=== PATIENT | male | born 1985 | race Caucasian/White ===

== ENCOUNTER 2025-01-28 08:06 | Inpatient (IN) | payer MEDICARE, MEDICAID ==
[2025-01-27 22:00] VITALS: BP 147/91; PULSE 84; RESP 16; TEMP 98.1; O2SAT 97
[~2025-01-28] VITALS: Ht 175.3 cm; Wt 84.0 kg
--- NOTE | 2025-01-28 08:22 | Physician Documentation ---
History of Present Illness General Chief Complaint: Abdominal Pain Stated Complaint: ABD PAIN Time Seen by MD: 08:21 OK to notify your PCP?: No Source: patient, RN notes reviewed Mode of Arrival: POV Exam Limitations: no limitations History of Present Illness Initial Comments 39 year old male, with no significant past medical history, presents complaining of periumbilical abdominal pain for the last month. Patient also describes some constipation and abdominal bloating over this time; he has not had a bowel movement in 3 days. Additionally he has had some nausea and vomiting after eating for the last 2 days. He visited an urgent care clinic, who initially told him pain may be related to his gallbladder so recommended a BRAT diet, which did not improve symptoms. He has been drinking plenty of fluids. He denies any fevers, chills, chest pain, bloody stool, urinary symptoms. He does not smoke tobacco or marijuana. Medication Reconciliation Allergies: Coded Allergies: No Known Allergies (Unverified , 01/28/25) Miscellaneous Medications Home Med List (No Home Medications), (Reported) Past Medical History Past Medical History: No Pertinent History Past Surgical History: no surgical history Alcohol Use: None Drug Use: none Lives In: Home Review of Systems All Other Systems at this time: Reviewed and Negative ROS As stated above in the HPI, otherwise all systems are reviewed and negative. Physical Exam Physical Exam Vital Signs: RN Vital Signs have been reviewed: Yes, Temperature: 98.4, Heart Rate: 116, Respiratory Rate: 16, BP: 146/98, Pulse Oximetry: 100, Weight: 81.000 Oxygen Flow Rate: 0 Pulse Oximetry Reflects: adequate oxygenation Physical Exam VITALS: Reviewed and as above. GENERAL: Alert, no apparent distress. HEENT: Normocephalic, atraumatic, PERRL, EOMI, dry mucosa RESPIRATORY: Lungs clear, normal breath sounds, no respiratory distress. CHEST: No accessory muscle use, no retractions CV: Regular rate, rhythm, no edema, no murmur, No: JVD GI: Mild epigastric tenderness. Soft, bowels sounds present, no rebound, guarding, or rigidity MUSCULOSKELETAL No deformities, no edema SKIN: Warm and dry, no rash NEURO: Oriented x4, No motor or sensory deficit PSYCH: Normal mood and affect, no agitation Progress Progress Note 0953: Hospitalist paged. 1001: Case discussed with Dr. Wong, hospitalist, who agrees to evaluate the patient for admission. 1008: Case discussed with Dr. Sharma, surgeon, who will consult. Results/Orders Reviewed/noted all lab results: Yes Results/Orders Orders - OHLFSEMILIANA MD Urinalysis, Cult If Indicated (01/28/25 08:14) Ct Abdomen Pelvis (01/28/25 ) Nasal Gastric Tube (01/28/25 ) Page Hospitalist (01/28/25 09:51) Fill Out Med Reconciliation (01/28/25 09:51) Completed Orders - EMILIANA CASTRO MD Cbc/Diff (01/28/25 08:14) BMP (01/28/25 08:14) Lipase (01/28/25 08:14) CMP (01/28/25 08:14) Normal Saline 1000ml (Sodium Chloride 10 (01/28/25 08:50) Ondansetron Inj. (Zofran 4mg/2ml Vial) (01/28/25 08:50) Ct Abdomen Pelvis (01/28/25 ) Midazolam 1 Mg/Ml 2ml Inj. (Versed 1 Mg/ (01/28/25 10:05) Medications Received in ER Medications (Trade) Dose Ordered Sig/Guillermo Route PRN Reason Start Time Stop Time Status Last Admin Dose Admin (VERSED 1 MG/ML 2 ML inj.) 2 mg ONCE ONCE IV 01/28/25 10:05 01/28/25 10:06 DC 01/28/25 10:37 2 MG Sodium Chloride 1,000 ml @ 100 mls/hr Q10H IV 01/28/25 10:05 01/28/25 11:20 100 MLS/HR Vital Signs 01/28/25 01/28/25 01/28/25 01/28/25 08:10 08:22 08:55 09:30 Temp 98.4 97.8 Pulse 116 109 92 Resp 16 15 18 16 B/P (MAP) 146/98 138/95 (109) 144/93 (110) Pulse Ox 100 100 100 O2 Flow Rate 0 0 0 Laboratory Tests Test 01/28/25 08:32 White Blood Count 14.2 H Red Blood Count 5.39 Hemoglobin 17.2 Hematocrit 49.0 Mean Corpuscular Volume 91.0 Mean Corpuscular Hemoglobin 32.0 H Mean Corpuscular Hemoglobin Concent 35.1 Red Cell Distribution Width 13.4 Platelet Count 280 Mean Platelet Volume 11.0 H Neutrophils (%) (Auto) 73.2 Lymphocytes (%) (Auto) 15.8 L Monocytes (%) (Auto) 9.4 Eosinophils (%) (Auto) 0.9 Basophils (%) (Auto) 0.7 Neutrophils # (Auto) 10.4 H Lymphocytes # (Auto) 2.2 Monocytes # (Auto) 1.3 H Eosinophils # (Auto) 0.1 Basophils # (Auto) 0.1 CBC Comment Sodium Level 136 Potassium Level 3.6 Chloride Level 92 L Carbon Dioxide Level 33.5 H Anion Gap 11 Blood Urea Nitrogen 33 H Creatinine 1.50 H Estimated GFR/1.73 m2 52 BUN/Creatinine Ratio 22.0 H Glucose Level 100 Calcium Level 9.2 Total Bilirubin 1.3 H Aspartate Amino Transf (AST/SGOT) 47 H Alanine Aminotransferase (ALT/SGPT) 75 Alkaline Phosphatase 135 H Total Protein 7.8 Albumin 4.5 Globulin 3.3 Albumin/Globulin Ratio 1.4 Lipase 73 Chemistry Comments EKG/XRAY/CT/US/VASC/MRI CT : Interpreted By: radiologist CT: abdomen/pelvis With Contrast?: No Impression Exam: CT CT ABDOMEN PELVIS History: abd pain Comparison Study: None available at time of dictation. TECHNIQUE: A digital medical physics teacher image was obtained. During the uneventful, intravenous administration of contrast material, multislice data acquisition was obtained through the abdomen and pelvis. The data set was subsequently reconstructed into axial images. Images were reviewed on a work station using a combination of axial and multiplanar using a variety of window levels and settings. Radiation Dose Information: CT Dose: CTDI volume is 25 mGy. Dose-length product is 250 mGy*cm FINDINGS: Lung Bases: No acute or significant lung base finding. Normal heart size. No pleural or pericardial effusion. Liver: The liver is normal in size. No focal lesions. Normal hepatic vascular enhancement. Gallbladder and Biliary Tree: Unremarkable Spleen: Unremarkable Pancreas: The pancreas is normal in appearance without focal lesions or abnormal enhancement. Adrenal Glands: Unremarkable Kidneys: Kidneys demonstrate normal symmetric enhancement without focal lesions, calculi or hydronephrosis. Bladder: Unremarkable Bowel: The stomach is grossly normal in appearance. Diffusely dilated loops of small bowel without definite transition point noted. Findings represent a small-bowel obstruction. The appendix is not visualized; however, no secondary findings of acute appendicitis identified. Ascites: Absent Lymphadenopathy: No mesenteric, retroperitoneal or periportal lymphadenopathy. Abdominal Wall and Mesentery: Unremarkable. Vasculature: The visualized abdominal aorta is normal in size and caliber. Abdominal and pelvic vessels demonstrate normal enhancement. Pelvic Organs: Unremarkable Musculoskeletal: No aggressive focal bony lesions, acute fractures or dislocation. Soft tissues: Unremarkable. IMPRESSION: Diffusely dilated loops of small bowel without definite transition point noted. Findings represent a small-bowel obstruction. All CT scans at this medical facility are performed using dose modulation techniques as appropriate to a performed exam including the following: Automated exposure control was utilized; adjustment of the MA and/or KV according to patient size; and use of iterative reconstruction technique. Reviewed by me Medical Decision Making Additional info obtained from: old records (no prior visits) Findings The patient is a 39-year-old male with the abdominal pain nausea vomiting and abdominal distention, the patient has never had any bowel surgeries, the patient was found to have a small-bowel obstruction on CT scan I independently interpreted the CT scan does show no solid organ abnormalities but the patient does have dilated small bowel loops and no free fluid was appreciated or no evidence of bowel perforation was appreciated, I interpreted the CT as showing a small bowel obstruction the radiologist's interpretation was also reviewed. The patient was discussed with surgery as well as with the hospitalist patient had an NG-tube placed with confirmation of the NG tube placement on chest x-ray I reviewed the chest x-ray and showed NG-tube placement and good position that showed a normal mediastinum normal cardiac silhouette and normal bony structures. I have also reviewed the radiologist's interpretation all previous labs and imaging were reviewed case was discussed with the hospitalist patient will be admitted to the hospital Differential Diagnosis All labs were noted and reviewed. Prior visits/hospitalizations were reviewed; no prior visits. Pulse ox was reviewed and interpreted as normal. Departure Time of Disposition: 09:53 Disposition: 09 ADMITTED INPATIENT Admitted to Inpatient Unit: yes, to hospitalist Impression: Primary Impression: SBO (small bowel obstruction) Condition: Fair Referrals: NO PRIMARY CARE PROVIDER (PCP) Signature Scribe Signature: Scribed for Ohlfs,Emiliana Moscoso MD by Jeffery Barron . 01/28/25 09:04 Attestation: The note accurately reflects work and decisions made by me.Emiliana Castro MD 01/28/25 17:18 EMILIANA CASTRO MD Jan 28, 2025 08:22 JEFFERY ESTRELLA Jan 28, 2025 09:09
[2025-01-28] MEDS: ondansetron/PF 4mg/2ml inj IV ONE (08:50)
[2025-01-28 08:52] LABS: BASOPHILS # (AUTO) 0.1 X10'3 (0-0.2); BASOPHILS % (AUTO) 0.7 % (0-1); EOSINOPHILS # (AUTO) 0.1 X10'3 (0-0.9); EOSINOPHILS % (AUTO) 0.9 % (0-6); HEMOGLOBIN 17.2 g/dl (14.0-17.9); LYMPHOCYTES # (AUTO) 2.2 X10'3 (1.1-4.8); LYMPHOCYTES % (AUTO) 15.8 % (21-51); MEAN CORPUSCULAR HGB CONC 35.1 g/dL (33.0-36.5); MONOCYTES # (AUTO) 1.3 X10'3 (0-0.9); MONOCYTES % (AUTO) 9.4 % (2-12); NEUTROPHILS # (AUTO) 10.4 X10'3 (1.8-7.7); NEUTROPHILS % (AUTO) 73.2 % (42-75); PLATELET COUNT 280 X10'3 (140-440); RED BLOOD COUNT 5.39 X10'6 (4.70-6.10); RED CELL DISTRIBUTION WIDTH 13.4 % (11.5-14.5); WHITE BLOOD COUNT 14.2 X10'3 (4.5-11.0)
[2025-01-28 08:55] LABS: ALANINE AMINOTRANSFERASE 75 U/L (12-78); ALBUMIN 4.5 G/DL (3.4-5.0); ALBUMIN/GLOBULIN RATIO 1.4 (1.1-1.5); ALKALINE PHOSPHATASE 135 IU/L (46-116); ANION GAP 11 (8-16); ASPARTATE AMINO TRANSFERASE 47 U/L (10-37); BILIRUBIN,TOTAL 1.3 MG/DL (0.1-1.0); BLOOD UREA NITROGEN 33 MG/DL (7-18); CALCIUM 9.2 MG/DL (8.5-10.1); CHLORIDE 92 MMOL/L (99-107); GLUCOSE 100 MG/DL (70-104); LIPASE 73 U/L (16-77); POTASSIUM 3.6 MMOL/L (3.5-5.1); SODIUM 136 MMOL/L (135-145); TOTAL CARBON DIOXIDE 33.5 MMOL/L (24-32); TOTAL PROTEIN 7.8 G/DL (6.4-8.2); eCRCL 66 ML/MIN; eGFR 52 ML/MIN
[2025-01-28] MEDS: normal saline 1000ML IV soln IVB ONE (09:34)
--- NOTE | 2025-01-28 09:45 | RADIOLOGY REPORT ---
Exam: CT CT ABDOMEN PELVIS History: abd pain Comparison Study: None available at time of dictation. TECHNIQUE: A digital rn hedis image was obtained. During the uneventful, intravenous administration of c ontrast material, multislice data acquisition was obtained through the abdomen and pelvis. The data s et was subsequently reconstructed into axial images. Images were reviewed on a work station using a c ombination of axial and multiplanar using a variety of window levels and settings. Radiation Dose Information: CT Dose: CTDI volume is 25 mGy. Dose-length product is 250 mGy*cm FINDINGS: Lung Bases: No acute or significant lung base finding. Normal heart size. No pleural or pericardial effusion. Liver: The liver is normal in size. No focal lesions. Normal hepatic vascular enhancement. Gallbladder and Biliary Tree: Unremarkable Spleen: Unremarkable Pancreas: The pancreas is normal in appearance without focal lesions or abnormal enhancement. Adrenal Glands: Unremarkable Kidneys: Kidneys demonstrate normal symmetric enhancement without focal lesions, calculi or hydroneph rosis. Bladder: Unremarkable Bowel: The stomach is grossly normal in appearance. Diffusely dilated loops of small bowel without de finite transition point noted. Findings represent a small-bowel obstruction. The appendix is not vi sualized; however, no secondary findings of acute appendicitis identified. Ascites: Absent Lymphadenopathy: No mesenteric, retroperitoneal or periportal lymphadenopathy. Abdominal Wall and Mesentery: Unremarkable. Vasculature: The visualized abdominal aorta is normal in size and caliber. Abdominal and pelvic vess els demonstrate normal enhancement. Pelvic Organs: Unremarkable Musculoskeletal: No aggressive focal bony lesions, acute fractures or dislocation. Soft tissues: Unremarkable. IMPRESSION: Diffusely dilated loops of small bowel without definite transition point noted. Findings represent a small-bowel obstruction. All CT scans at this medical facility are performed using dose modulation techniques as appropriate t o a performed exam including the following: Automated exposure control was utilized; adjustment of th e MA and/or KV according to patient size; and use of iterative reconstruction technique.
[2025-01-28] MEDS ORDERED: magnesium hydroxide 30ml (MOM) UD suspension PO PRN (10:05)
[2025-01-28] MEDS ORDERED: potassium Cl 40MEQ/1/2NS 520ml 520 ML IV PRN (10:05)
[2025-01-28] MEDS ORDERED: acetaminophen 325mg tablet PO PRN (10:05)
[2025-01-28] MEDS ORDERED: potassium Cl 20 mEq SR tablet PO PRN (10:05)
[2025-01-28] MEDS ORDERED: ondansetron/PF 4mg/2ml inj IV PRN (10:05)
[2025-01-28] MEDS ORDERED: mag hydrox/Alum hydrox/simeth 30ml oral suspension PO PRN (10:05)
[2025-01-28] MEDS ORDERED: magnesium sulf-water 4G/100mL 100 ML IV PRN (10:05)
[2025-01-28] MEDS ORDERED: magnesium sulf-water 2g/50mL 50 ML IV PRN (10:05)
[2025-01-28] MEDS: midazolam 1 mg/ML 2ml injection IV ONE (10:37)
--- NOTE | 2025-01-28 11:01 | HISTORY AND PHYSICAL ---
History & Physical Providers to CC ~ History of Present Illness Reason for Admit\Complaint: Small-bowel obstruction\abdominal pain with emesis History of Present Illness This is a 39-year-old male who has a three day history of periumbilical abdominal pain as well as nausea and intermittent emesis last episode of vomiting was last evening. The patient had a normal bowel movement three days ago was seen in urgent Care Clinic and recommended a brat diet patient was symptoms have not improve. Patient denies any fever chills. The patient [place] [address] and an acute kidney injury with a estimated GFR of 52 and a creatinine 1.50. A CT scan of the abdomen and pelvis was obtained which demonstrates multiple dilated loops of small bowel consistent with a small-bowel obstruction without a definitive transition point. Dr. Rivera ED physician is going to contact on-call surgeon Dr. Sharma- NG tube to low wall intermittent suction is ordered. Allergies: Coded Allergies: No Known Allergies (Unverified , 01/28/25) Past Medical History Past Medical History None no chronic health conditions Past Surgical History Surgical History Comment No prior surgeries Family History Family History: FH: colon cancer Paternal great grandmother Past Social History Social History Comment Patient denes history of smoking/ drinking alcohol nor any illicit drug use Full Code Status ROS ROS Except for positives in the HPI the rest of the 14 point review systems is negative Exam Vitals: Vital Signs Date Time Temp Pulse Resp B/P (MAP) Pulse Ox O2 Delivery O2 Flow Rate FiO2 01/28/25 08:55 97.8 109 18 138/95 (109) 100 0 General: Gen. No acute distress alert and oriented 4 Lungs clear to ascultation bilaterally, no wheezes rales or rhonchi appreciated Heart normal sinus rhythm no murmurs rubs or clicks noted Abdomen soft however moderately distended and bowel sounds are slightly hypoactive Lower extremities no clubbing cyanosis, nor edema appreciated bilaterally Diagnostic Data Last Recorded Lab Results: 01/28/25 0832 01/28/25 0832 Advance Care Planning Advanced Care plannin - 30 Minutes Problems: (1) SBO (small bowel obstruction) Status: Acute Additional Plan # small-bowel obstruction- NPO- NG tube to low wall intermittent suction- Dr. Sharma surgeon to be consulted # renal insufficiency likely secondary to MARLENE daily CMPs are ordered to monitor IV fluid resuscitation is ordered # elevated bilirubin and AST- monitor daily CMP - the gallbladder and biliary tree is unremarkable on CT scan. # leukocytosis- neutrophil% is normal- afebrile likely secondary to leukemoid reaction monitor for any signs of an acute infectious process # DVT prophylaxis SCDs I spent a total of 17 minutes on reviewing various resuscitative measures/ ACP with the patient at the time of admission. The patient has decided on a full code status Date of Service: Jan 28, 2025 Billing Provider: GUIDO DALAL DO Common Visit Codes: 29304-HDZZUDI INP/OBS CARE (HIGH) Secondary Visit Codes: 37885-[id number] CARE PLAN 30 MINUTES GUIDO DALAL DO Jan 28, 2025 11:01
[2025-01-28] MEDS: normal saline 1000ml 1,000 ML IV SCH (11:20)
[2025-01-28] MEDS ORDERED: NO HOME MEDS (11:38)
--- NOTE | 2025-01-28 11:49 | RADIOLOGY REPORT ---
DI CHEST,SINGLE VIEW, HISTORY: verify NGT placement COMPARISON: None None TECHNICAL DATA: 1 view of the chest was obtained. FINDINGS: Lines and tubes: NG projects over the stomach. Cardiomediastinal silhouette: normal Pulmonary vasculature: normal Lung expansion: normal Lung airspace: normal Lung interstitium: normal Pleura: normal Pneumothorax: no Bones: Unremarkable Other: no IMPRESSION: NG projects over the stomach.
[2025-01-28 12:30] VITALS: BP 148/94; PULSE 91; RESP 16; TEMP 98.9; O2SAT 98
[2025-01-28 18:00] VITALS: BP 142/90; PULSE 94; RESP 16; TEMP 98.9; O2SAT 99
[2025-01-28] MEDS ORDERED: dextrose 50%-water 50ml dispensing syringe IV PRN (18:35)
[2025-01-28] MEDS ORDERED: glucagon, human recombinant 1mg kit SUBCUT PRN (18:35)
[2025-01-28] MEDS ORDERED: DEXTROSE 15 GM of carb/4 tabs (each vial/BOTTLE has 4 tablets) PO PRN ×2 (18:35)
[2025-01-28] MEDS ORDERED: diatrozoate meglu/diatrozoate sod (37% iodine) 120ML oral solution PO ONE (18:40)
--- NOTE | 2025-01-28 18:43 | PROGRESS NOTE ---
Progress Note Dictate Providers to CC CC: BENSON ROMERO MD ~ Progress Note: Patient is a 39-year-old gentleman He has no history of small-bowel obstruction He has a two week history of worsening abdominal pain and bloating Had some nausea and vomiting Abdominal pain was somewhat worse today and he presented to the emergency room where he was found to have evidence of a small-bowel obstruction Radiologist did not see a transition point, however, ICA fairly cleared distal and proximal transition point with a slight whorl sign at the distal transition point This raises some concern for possible small-bowel volvulus, however, patient is now reporting no pain, passing flatus. Presentation and imaging is somewhat confusing Given abdomen is only softly distended, pain-free, and he is passing flatus I would like to repeat a CT scan with oral contrast Gastric view ordered x1 via nasogastric tube CT scan ordered for 7:00 a.m. (12 hour dwell time) Antibiotic Ordered?: No Objective Vitals Vital Signs Date Time Temp Pulse Resp B/P (MAP) Pulse Ox O2 Delivery O2 Flow Rate FiO2 01/28/25 14:46 Room Air 01/28/25 12:30 98.9 91 16 148/94 (112) 98 01/28/25 11:17 0 Lab Results: 01/28/25 0832 01/28/25 0832 BENSON ROMERO MD Jan 28, 2025 18:43
[2025-01-28] MEDS: K and/or MAG REPLACEMENT MC SCH (19:04)
[2025-01-28] MEDS: docusate sod 100mg capsule PO SCH (19:05)
[2025-01-28] MEDS: diatr meglu/diatrizoate 30ml oral sol.-(3 dose) bottle PO ONE (19:20)
[2025-01-28 20:00] VITALS: RESP 16; O2SAT 99
[2025-01-28] MEDS ORDERED: enoxaparin 40mg/0.4ml syringe SQ SCH (20:00)
[2025-01-28] MEDS: dextrose 50%-water 50ml dispensing syringe IV PRN (20:56)
[2025-01-29] VITALS (19 sets, daily range): BP systolic 109–164; BP diastolic 58–103; PULSE 78–104; RESP 14–24; TEMP 97.9–98.9; O2SAT 93–99
[2025-01-29 06:15] LABS: BASOPHILS # (AUTO) 0.1 X10'3 (0-0.2); BASOPHILS % (AUTO) 0.5 % (0-1); EOSINOPHILS # (AUTO) 0.2 X10'3 (0-0.9); EOSINOPHILS % (AUTO) 2.2 % (0-6); HEMATOCRIT 42.2 % (42.0-52.0); LYMPHOCYTES # (AUTO) 1.5 X10'3 (1.1-4.8); LYMPHOCYTES % (AUTO) 16.6 % (21-51); MEAN CORPUSCULAR HEMOGLOBIN 32.4 PG (27.0-31.0); MEAN CORPUSCULAR HGB CONC 35.5 g/dL (33.0-36.5); MEAN CORPUSCULAR VOLUME 91.1 FL (78-98); MEAN PLATELET VOLUME 10.4 FL (7.4-10.4); MONOCYTES % (AUTO) 10.5 % (2-12); NEUTROPHILS # (AUTO) 6.5 X10'3 (1.8-7.7); NEUTROPHILS % (AUTO) 70.2 % (42-75); PLATELET COUNT 206 X10'3 (140-440); RED BLOOD COUNT 4.63 X10'6 (4.70-6.10); RED CELL DISTRIBUTION WIDTH 13.4 % (11.5-14.5); WHITE BLOOD COUNT 9.3 X10'3 (4.5-11.0)
[2025-01-29 06:24] LABS: ALANINE AMINOTRANSFERASE 64 U/L (12-78); ALBUMIN 3.6 G/DL (3.4-5.0); ALBUMIN/GLOBULIN RATIO 1.3 (1.1-1.5); ALKALINE PHOSPHATASE 112 IU/L (46-116); ANION GAP 8 (8-16); ASPARTATE AMINO TRANSFERASE 32 U/L (10-37); BILIRUBIN,TOTAL 0.8 MG/DL (0.1-1.0); BLOOD UREA NITROGEN 22 MG/DL (7-18); BUN/CREATININE RATIO 20.4 (10.0-20.0); CALCIUM 8.5 MG/DL (8.5-10.1); CHLORIDE 100 MMOL/L (99-107); CREATININE 1.08 MG/DL (0.60-1.10); GLUCOSE 81 MG/DL (70-104); MAGNESIUM 2.3 MG/DL (1.5-2.4); POTASSIUM 3.2 MMOL/L (3.5-5.1); SODIUM 140 MMOL/L (135-145); TOTAL CARBON DIOXIDE 31.8 MMOL/L (24-32); TOTAL PROTEIN 6.3 G/DL (6.4-8.2); eCRCL 92 ML/MIN; eGFR 76 ML/MIN
[2025-01-29] MEDS: potassium Cl 20 mEq SR tablet PO PRN (07:17)
[2025-01-29 08:03] LABS: BILIRUBIN,URINE MODERATE (Neg); CLARITY,URINE CLEAR (Clear); GLUCOSE, URINE NEGATIVE (Neg); KETONES,URINE >=80 mg/dl (Neg); LEUKOCYTE ESTERASE ,URINE NEGATIVE (Neg); NITRITES, URINE NEGATIVE (Neg); OCCULT BLOOD,URINE NEGATIVE (Neg); PH,URINE 6.5 (4.8-8.0); PROTEIN,URINE 30 mg/dl (Neg); UROBILINOGEN,URINE 0.2 E.U/dL (0.2-1.0)
[2025-01-29 08:09] LABS: COLOR,URINE DARK YELLOW (Yellow); UA COLLECTION TYPE NON-SPECIFIED
[2025-01-29 08:18] LABS: BACTERIA,URINE FEW /HPF (Neg); FINE GRANULAR CAST 0-3 /LPF (NEGATIVE); MUCUS STRANDS FEW /LPF (Neg); RBC,URINE NONE SEEN /HPF (0-2); SQUAMOUS EPITHELIAL CELL,UR FEW /LPF (FEW); WBC,URINE 0-4 /HPF (0-4)
--- NOTE | 2025-01-29 09:36 | RADIOLOGY REPORT ---
EXAM: CT Abdomen and Pelvis Without Intravenous Contrast CLINICAL INDICATION: Small-bowel obstruction TECHNIQUE: Axial computed tomography images of the abdomen and pelvis without intravenous contrast. This CT exam was performed using one or more of the following dose reduction techniques: automated exposure control, adjustment of the mA and/or kV according to patient size, and/or use of iterative r econstruction technique. CONTRAST: COMPARISON: CT CT ABDOMEN PELVIS on DOS: 01/28/25 FINDINGS: LUNG BASES: Unremarkable. No mass. No consolidation. ABDOMEN: LIVER: Hepatomegaly with fatty infiltration. GALLBLADDER AND BILE DUCTS: Unremarkable. No calcified stones. No ductal dilation. PANCREAS: Unremarkable. No ductal dilation. SPLEEN: Unremarkable. No splenomegaly. ADRENALS: Unremarkable. No mass. KIDNEYS AND URETERS: Unremarkable. No obstructing stones. No hydronephrosis. STOMACH AND BOWEL: Unremarkable. No obstruction. No mucosal thickening. PELVIS: APPENDIX: No findings to suggest acute appendicitis. BLADDER: Unremarkable. No stones. REPRODUCTIVE: Unremarkable as visualized. ABDOMEN and PELVIS: INTRAPERITONEAL SPACE: Distended small bowel with differential air-fluid levels measuring up to 6.0 cm with possible transition point in the right lower abdominal quadrant. No pneumoperitoneum. BONES/JOINTS: No acute fracture. No dislocation. SOFT TISSUES: Left inguinal hernia. VASCULATURE: Unremarkable. No abdominal aortic aneurysm. LYMPH NODES: Unremarkable. No enlarged lymph nodes. OTHER FINDINGS: . . IMPRESSION: 1. Distended small bowel with differential air-fluid levels measuring up to 6.0 cm with possible tra nsition point in the right lower abdominal quadrant. No pneumoperitoneum. 2. Hepatomegaly with fatty infiltration. 3. Left inguinal hernia.
--- NOTE | 2025-01-29 10:52 | CONSULTATION REPORT ---
History of Present Illness Providers to CC CC: BENSON ROMERO MD ~ Reason for Admit\Admit Dx: Small-bowel obstruction\abdominal pain with emesis History of Present Illness Consultation for small-bowel obstruction Otherwise healthy 39-year-old gentleman with a several week history of worsening abdominal discomfort that became more painful over the last several days. Food fear and intermittent episodes of nausea and emesis. Workup in the emergency room included CT scan that was concerning for small bowel obstruction. I reviewed this CT scan yesterday and was concern for possible volvulus of the mid small intestine, however, patient reported no pain at that time, leukocytosis had improved/resolved, and he stated he was passing some flatus. Repeat imaging was ordered for this morning with overnight oral contrast prep. Patient had a liquid bowel movement this morning, but remained somewhat distended. I reviewed the CT scan and it showed almost exactly the same segment of small intestine, significantly dilated, with a distal transition point. I am also concerned for a possible proximal transition point with no significant distention of the stomach or proximal small bowel. There is a segment of jejunum that is significantly dilated not too far downstream from the ligament of Treitz with a clear transition point in the right lower quadrant. There was some subtle suggestion of whirling of the the mesentery near this area. There was contrast downstream within the colon and rectum making this most likely a partial transition point. Patient has absolutely no surgical history and there are no associated hernias along the abdominal wall associated with either of these two possible transition points. Allergies: Coded Allergies: No Known Allergies (Unverified , 01/28/25) Home Medications Home Medications Active Reported No Home Medications (Home Med List) Each Past Medical History Medical History Comment None reported Past Surgical History Surgical History Comment No past surgical history Past Family History Family History Comment Not applicable Family History: FH: colon cancer Paternal great grandmother FATHER, Onset:Unknown FH: pancreatic cancer FATHER FHx: Parkinson's disease MOTHER Past Social History Social History Comment Negative x3 Health Maintenance Health Maintenance Not applicable Physical Exam Last Vital Signs Recorded: RN Vital Signs have been reviewed: Yes, Temperature: 98.5, Source: Temporal, Heart Rate: 89, Respiratory Rate: 18, BP: 143/91, Pulse Oximetry: 95, Weight: 84.000 General Appearance 39-year-old male in no acute distress EENT: PERRL/EOMI; No: scleral icterus (R), scleral icterus (L) Neck: normal inspection, supple Respiratory: lungs clear Cardiovascular: regular rate, rhythm Gastrointestinal Abdomen is softly distended There was a small reducible umbilical hernia with no overlying skin changes Mildly tender to palpation without rebound tenderness No palpable masses or other hernias Rectal: deferred Extremities: normal range of motion, no edema Neurologic: oriented x4 Psychiatric: normal mood/affect; No: anxiety Skin: normal color Lymphatic: no adenopathy Review of Systems ROS ROS Comments: Reviewed and negative with the exception of those found in the history of present illness Results Diagram Lab Result Diagram: 01/29/2545001/29/25 045 Assessment/Plan Problems/Diagnosis: (1) SBO (small bowel obstruction) Assessment & Plan: No improvement on CT scan despite partial status Concern for possible small-bowel volvulus versus partially obstructing lesion The risks, benefits, and alternatives to a robotic assisted, diagnostic laparoscopy, possible laparotomy, possible bowel resection were discussed with the patient and his mother. Risks include, but are not limited to, bleeding, infection, injury to intra-abdominal structures, leakage from the intestine and the need for additional surgery. Patient verbalized understanding and wishes to proceed with surgery. We will do so today as soon as possible. BENSON ROMERO MD Jan 29, 2025 10:52
[2025-01-29 11:16] LABS: INR 1.1 INR; PROTHROMBIN TIME 10.9 SECONDS (9.0-12.0)
[2025-01-29] MEDS: LORazepam 1 MG tablet PO ONE (11:25)
[2025-01-29] MEDS ORDERED: morphine 2 MG/ML inj. syringe IV PRN (13:20)
[2025-01-29] MEDS ORDERED: labetalol 20mg/4ml (5mg/ml) syringe IV PRN (13:20)
[2025-01-29] MEDS ORDERED: proCHLORperazine 10 MG/2 ml inj IV PRN (13:20)
[2025-01-29] MEDS ORDERED: meperidine/PF 25mg/ml syringe IV PRN ×3 (13:20)
[2025-01-29] MEDS ORDERED: morphine 4 MG/ML inj SYRINge IV PRN (13:20)
[2025-01-29] MEDS ORDERED: ondansetron/PF 4mg/2ml inj IV PRN (13:20)
[2025-01-29] MEDS ORDERED: enalaprilat 1.25mg/ml 2ml vial IV PRN (13:20)
[2025-01-29] MEDS: ringers solution, lacted 1,000 ML IV SCH (13:47)
[2025-01-29] MEDS ORDERED: LIDOcaine 1% 30ml preserv. free vial ONE ×2 (15:36→19:08)
[2025-01-29] MEDS ORDERED: BUPIVAcaine 2.5mg/ml inj 50ml vial (contains preservative) ONE ×2 (15:36→19:08)
[2025-01-29] MEDS ORDERED: sevoflurane 250ml liquid IH ONE (16:18)
[2025-01-29] MEDS ORDERED: midazolam 1 mg/ML 2ml injection ONE (16:25)
[2025-01-29] MEDS ORDERED: fentaNYL /PF 50mcg/ml 5ml ampule ONE (16:25)
[2025-01-29] MEDS ORDERED: ceFAZolin 1000mg inj ONE ×2 (16:52)
[2025-01-29] MEDS ORDERED: rocuronium 10mg/ml inj IV ONE (16:52)
[2025-01-29] MEDS ORDERED: propofol inj 20 ML IV ONE (16:53)
[2025-01-29] MEDS: BUPIVAcaine/PF 2.5 mg/ml (0.25%) 30ml vial IJ ONE (17:18)
[2025-01-29] MEDS ORDERED: morphine 10mg/ml inj. ONE (17:50)
--- NOTE | 2025-01-29 19:18 | OPERATIVE REPORT ---
Operative Report Providers to CC CC: HAN ROMERO MD ~ Date of Procedure: Jan 29, 2025 Pre-Operative Diagnosis: Small-bowel obstruction Post-Operative Diagnosis SAME as PRE-Op Procedure Performed Robotic assisted, laparoscopic enterolysis Exploratory laparotomy with lysis of adhesions Small bowel diverticulectomy (CPT 03840) Bilateral transversus abdominis nerve blocks by injection using 266 mg of Exparel Surgeon: Han Romero MD FACS [place] None Anesthesiologist: Khanh Frank Type of Anesthesia: General Findings: Dense adhesions in the mid small bowel with clear transition point Apparent small-bowel diverticulum within the massive adhesions excised and sent as specimen Complications None Prosthetics\Implants used: None Estimated Blood Loss: 20 cc Specimen Removed: Small-bowel diverticulum Description of Procedure: Patient was brought to the operating room and identified by the nursing staff an d the attending physician. Patient was placed supine and general anesthesia was induced. Preoperative antibiotics were given. Veress needle technique was used at goetz's point in the abdomen was insufflated without incident. Optical trocar was used to gain access to the abdomen in the left epigastrium. Abdomen was surveyed. There were loops of significantly distended small bowel in the upper abdomen and in the right lower quadrant there were decompressed normal-appearing loops of small bowel. Additional robotic trocars were placed in the right upper quadrant left upper quadrant and left lateral abdomen. Patient was placed in Trendelenburg position with the right side up. The de Clau robotic arm was docked to the patient and instruments were guided into the abdomen under laparoscopic visualization. Atraumatic graspers were used to run the small bowel proximally starting at the terminal ileum. In the mid small bowel, there was a definite transition point as the decompressed loop of small bowel dives into the mesentery and became tangled in a dense web of adhesions. About 1 hour was spent trying to complete the enterolysis and free the obvious site of obstruction (transition point). After 1 hour, no significant progress was reached and this was ultimately abandoned for an exploratory laparotomy. Instruments were removed and the de Clau robotic arm was undocked from the patient. Midline incision was made following local anesthetic placement. Abdomen was entered and the massively distended loops of small intestine were eviscerated. The transition point was in the mid small bowel. This correlated with the dense web of adhesions involving several interloop adhesions and adhesions to the mesentery. Small bowel contents were milked back into the stomach and suctioned out through the nasogastric tube. Three total L of liquid was removed. Another hour was spent taking down adhesions until the point of transition was completely freed. I was able to milk enteral contents through the previous transition point without incident. Interestingly, there was a small bowel diverticulum tangled in the massive adhesions. There was evidence of previous inflammatory process with some calcified fat adjacent to this. The diverticulum was resected using a 45 Endo-MINDY stapler. The staple line was reinforced with Lembert sutures using 3-0 Vicryl. Once again, upstream enteral contents were pushed through the area to confirm patency. Bilateral transversus abdominis nerve blocks by injection were then placed using a combination of Marcaine and 266 mg of Exparel. Bowel was reduced back into the abdomen following confirmation of NG tube placement. Midline fascia was closed with a running 1. PDS suture and the skin was closed with skin dora. Dressings were applied. Patient was awakened and taken to the postanesthesia care unit in stable condition. Counts repoted as correct: Yes HAN ROMERO MD Jan 29, 2025 19:18
[2025-01-29] MEDS ORDERED: naloxone 0.4 mg/ml inj IV PRN (19:20)
[2025-01-29] MEDS: HYDROmorph/NS 0.2 mg/ml PCA 100 ML IV SCH (19:52)
--- NOTE | 2025-01-29 20:23 | PROGRESS NOTE ---
Daily Progress Note Providers to CC ~ Antibiotic Timeout Antibiotic Ordered?: No Subjective The patient was repeat CT scan of the abdomen and pelvis with oral contrast prep was unchanged from the previous CT scan and I evaluated the patient prior to the patient going to the OR for which the patient had significant amount of adhesions per Dr. Sharma's dictation. The procedure was able to be done laparoscopically Objective Vital Signs Date Time Temp Pulse Resp B/P (MAP) Pulse Ox O2 Delivery O2 Flow Rate FiO2 01/29/25 20:10 84 16 142/79 (100) 93 Nasal Cannula 2.0 01/29/25 19:20 97.2 Result Diagram: 01/29/25 0451 01/29/25 0451 Gen. No acute distress alert and oriented 4 Lungs clear to ascultation bilaterally, no wheezes rales or rhonchi appreciated Heart normal sinus rhythm no murmurs rubs or clicks noted Abdomen soft moderately distended bowel sounds are slightly hypoactive Lower extremities no clubbing cyanosis, nor edema appreciated bilaterally Coagulation Studies Laboratory Tests Test 01/29/25 10:42 Prothrombin Time 10.9 SECONDS (9.0-12.0) INR International Normalized Ratio 1.1 INR Coagulation Comments Problem\Assessment\Plan Problems/Diagnosis: (1) SBO (small bowel obstruction) # small-bowel obstruction- NPO- NG tube to low wall intermittent suction- Dr. Sharma surgeon to be consulted -01/[address] scan of the abdomen and pelvis overnight oral contrast prep demonstrated a small-bowel obstruction patient was since went to the OR with the following procedures by Dr. Sharma: Robotic assisted, laparoscopic enterolysis Exploratory laparotomy with lysis of adhesions Small bowel diverticulectomy Bilateral transversus abdominis nerve blocks by injection using 266 mg of Exparel # MARLENE-likely secondary to dehydration/ATN- resolved with IV fluid resuscitation # elevated bilirubin and AST- monitor daily CMP - the gallbladder and biliary tree is unremarkable on CT scan. -01/29 resolved # leukocytosis- neutrophil% is normal- afebrile likely secondary to leukemoid reaction monitor for any signs of an acute infectious process -01/29 resolved # hypokalemia- on potassium replacement protocol # DVT prophylaxis SCDs Date of Service: Jan 29, 2025 Billing Provider: GUIDO DALAL DO Common Visit Codes: [id number] INP/OBS CARE(HIGH) GUIDO DALAL DO Jan 29, 2025 20:23
[2025-01-29] MEDS: normal saline 1000ml 1,000 ML IV SCH (20:49)
[2025-01-29] MEDS ORDERED: POTASSIUM CHLORIDE 20 MEQ/15 ML oral solution PO PRN (22:30)
[2025-01-29] MEDS: POTASSIUM CHLORIDE 20 MEQ/15 ML oral solution PO PRN (22:50)
[2025-01-30 00:05] VITALS: BP 110/67; PULSE 73; O2SAT 97
[2025-01-30 01:30] VITALS: BP 119/72; PULSE 69; RESP 14; TEMP 97.6; O2SAT 98
[2025-01-30 04:19] LABS: BASOPHILS % (AUTO) 0 % (0-1); EOSINOPHILS % (AUTO) 0 % (0-6); HEMATOCRIT 37.4 % (42.0-52.0); HEMOGLOBIN 13.2 g/dl (14.0-17.9); LYMPHOCYTES # (AUTO) 0.6 X10'3 (1.1-4.8); MEAN CORPUSCULAR HGB CONC 35.2 g/dL (33.0-36.5); MEAN CORPUSCULAR VOLUME 90.8 FL (78-98); MEAN PLATELET VOLUME 10.5 FL (7.4-10.4); MONOCYTES # (AUTO) 0.7 X10'3 (0-0.9); MONOCYTES % (AUTO) 5.6 % (2-12); NEUTROPHILS # (AUTO) 11.3 X10'3 (1.8-7.7); NEUTROPHILS % (AUTO) 89.4 % (42-75); PLATELET COUNT 184 X10'3 (140-440); RED BLOOD COUNT 4.12 X10'6 (4.70-6.10); RED CELL DISTRIBUTION WIDTH 13.3 % (11.5-14.5); WHITE BLOOD COUNT 12.6 X10'3 (4.5-11.0)
[2025-01-30 04:36] LABS: ALANINE AMINOTRANSFERASE 46 U/L (12-78); ALBUMIN 2.7 G/DL (3.4-5.0); ALBUMIN/GLOBULIN RATIO 1.1 (1.1-1.5); ALKALINE PHOSPHATASE 91 IU/L (46-116); ANION GAP 9 (8-16); ASPARTATE AMINO TRANSFERASE 27 U/L (10-37); BILIRUBIN,TOTAL 0.6 MG/DL (0.1-1.0); BLOOD UREA NITROGEN 19 MG/DL (7-18); BUN/CREATININE RATIO 20.2 (10.0-20.0); CALCIUM 7.8 MG/DL (8.5-10.1); CHLORIDE 104 MMOL/L (99-107); CREATININE 0.94 MG/DL (0.60-1.10); GLUCOSE 108 MG/DL (70-104); MAGNESIUM 1.9 MG/DL (1.5-2.4); POTASSIUM 4.3 MMOL/L (3.5-5.1); SODIUM 141 MMOL/L (135-145); TOTAL CARBON DIOXIDE 28.2 MMOL/L (24-32); TOTAL PROTEIN 5.2 G/DL (6.4-8.2); eCRCL 106 ML/MIN; eGFR 89 ML/MIN
[2025-01-30 06:00] VITALS: BP 120/68; PULSE 75; RESP 14; TEMP 97.9; O2SAT 98
[2025-01-30 10:00] VITALS: BP 136/79; PULSE 86; RESP 16; TEMP 99.1; O2SAT 97
--- NOTE | 2025-01-30 14:36 | PROGRESS NOTE ---
Progress Note Dictate Providers to CC ~ Progress Note: Subsequent surgical care on a 39-year-old gentleman who is postoperative day 1 status post robotic assisted diagnostic laparoscopy with lysis of adhesions converted to exploratory laparotomy with continued lysis of adhesions and small bowel diverticulectomy Nasogastric tube remains in place Given the significant distention and obstruction prior to surgery, I would expect several days nasogastric tube decompression until bowel function returns Incision dressed and dry Continue nasogastric tube May have ice chips Tubal be removed and diet advanced with definitive return of bowel function Antibiotic Ordered?: N/A Objective Vitals Vital Signs Date Time Temp Pulse Resp B/P (MAP) Pulse Ox O2 Delivery O2 Flow Rate FiO2 01/30/25 13:00 16 01/30/25 07:20 Nasal Cannula 2.0 01/30/25 06:00 97.9 75 120/68 (85) 98 Lab Results: 01/30/25 0322 01/30/25 0322 Coagulation Studies Laboratory Tests Test 01/29/25 10:42 Prothrombin Time 10.9 SECONDS (9.0-12.0) INR International Normalized Ratio 1.1 INR Coagulation Comments Problem\Assessment\Plan Problems/Diagnosis: (1) SBO (small bowel obstruction) BENSON ROMERO MD Jan 30, 2025 14:36
--- NOTE | 2025-01-30 17:43 | PROGRESS NOTE ---
Daily Progress Note Providers to CC ~ Antibiotic Timeout Antibiotic Ordered?: No Subjective The patient has not passed flatus yet had a bowel movement is currently on ice chips NG tube remains in place Objective Vital Signs Date Time Temp Pulse Resp B/P (MAP) Pulse Ox O2 Delivery O2 Flow Rate FiO2 01/30/25 17:00 18 01/30/25 10:00 99.1 86 136/79 (98) 97 Room Air 01/30/25 07:20 2.0 Result Diagram: 01/30/25 0322 01/30/25 0322 Gen. No acute distress alert and oriented 4 Lungs clear to ascultation bilaterally, no wheezes rales or rhonchi appreciated Heart normal sinus rhythm no murmurs rubs or clicks noted Abdomen semi firm moderately distended bowel sounds are hypoactive Lower extremities no clubbing cyanosis, nor edema appreciated bilaterally Coagulation Studies Laboratory Tests Test 01/29/25 10:42 Prothrombin Time 10.9 SECONDS (9.0-12.0) INR International Normalized Ratio 1.1 INR Coagulation Comments Problem\Assessment\Plan Problems/Diagnosis: (1) SBO (small bowel obstruction) # small-bowel obstruction- NPO- NG tube to low wall intermittent suction- Dr. Sharma surgeon to be consulted -01/[address] scan of the abdomen and pelvis overnight oral contrast prep demonstrated a small-bowel obstruction patient was since went to the OR with the following procedures by Dr. Sharma: Robotic assisted, laparoscopic enterolysis Exploratory laparotomy with lysis of adhesions Small bowel diverticulectomy Bilateral transversus abdominis nerve blocks by injection using 266 mg of Exparel -01/29 NG tube remains in place and the patient was on ice chips currently # MARLENE-likely secondary to dehydration/ATN- resolved with IV fluid resuscitation # elevated bilirubin and AST- monitor daily CMP - the gallbladder and biliary tree is unremarkable on CT scan. -01/29 resolved # leukocytosis- neutrophil% is normal- afebrile likely secondary to leukemoid reaction monitor for any signs of an acute infectious process -01/29 resolved -01/30 white blood cell count is up trended likely secondary to leukemoid reaction postop we will continue to monitor # hypokalemia- on potassium replacement protocol # DVT prophylaxis SCDs Date of Service: Jan 30, 2025 Billing Provider: GUIDO DALAL DO Common Visit Codes: [id number] INP/OBS CARE(HIGH) GUIDO DALAL DO Jan 30, 2025 17:43
[2025-01-30 18:00] VITALS: BP 139/88; PULSE 95; RESP 16; TEMP 99.2; O2SAT 99
[2025-01-30 22:00] VITALS: BP 138/84; PULSE 89; RESP 16; TEMP 97.9; O2SAT 98
[2025-01-31 05:00] VITALS: BP 149/93; PULSE 98; RESP 20; TEMP 98.8; O2SAT 92
[2025-01-31 06:05] LABS: BASOPHILS % (AUTO) 0.3 % (0-1); EOSINOPHILS # (AUTO) 0.1 X10'3 (0-0.9); HEMATOCRIT 37.4 % (42.0-52.0); HEMOGLOBIN 12.5 g/dl (14.0-17.9); LYMPHOCYTES # (AUTO) 1.4 X10'3 (1.1-4.8); LYMPHOCYTES % (AUTO) 11.9 % (21-51); MEAN CORPUSCULAR HEMOGLOBIN 31.2 PG (27.0-31.0); MEAN CORPUSCULAR HGB CONC 33.5 g/dL (33.0-36.5); MEAN CORPUSCULAR VOLUME 93.2 FL (78-98); MEAN PLATELET VOLUME 10.5 FL (7.4-10.4); MONOCYTES % (AUTO) 7.8 % (2-12); NEUTROPHILS # (AUTO) 9.6 X10'3 (1.8-7.7); PLATELET COUNT 189 X10'3 (140-440); RED BLOOD COUNT 4.02 X10'6 (4.70-6.10); RED CELL DISTRIBUTION WIDTH 13.9 % (11.5-14.5); WHITE BLOOD COUNT 12.2 X10'3 (4.5-11.0)
[2025-01-31 06:29] LABS: ALANINE AMINOTRANSFERASE 37 U/L (12-78); ALBUMIN 2.6 G/DL (3.4-5.0); ALKALINE PHOSPHATASE 84 IU/L (46-116); ANION GAP 7 (8-16); ASPARTATE AMINO TRANSFERASE 20 U/L (10-37); BILIRUBIN,TOTAL 0.5 MG/DL (0.1-1.0); BLOOD UREA NITROGEN 14 MG/DL (7-18); BUN/CREATININE RATIO 17.3 (10.0-20.0); CALCIUM 8.1 MG/DL (8.5-10.1); CHLORIDE 107 MMOL/L (99-107); CREATININE 0.81 MG/DL (0.60-1.10); GLUCOSE 72 MG/DL (70-104); POTASSIUM 3.4 MMOL/L (3.5-5.1); SODIUM 143 MMOL/L (135-145); TOTAL CARBON DIOXIDE 28.6 MMOL/L (24-32); TOTAL PROTEIN 5.3 G/DL (6.4-8.2); eCRCL 122 ML/MIN; eGFR > 90 ML/MIN
[2025-01-31 10:00] VITALS: BP 153/99; PULSE 99; RESP 16; TEMP 98.1; O2SAT 94
[2025-01-31] MEDS: tamsulosin 0.4mg capsule PO ONE (16:43)
[2025-01-31] MEDS ORDERED: LORazepam 2 mg/ml vial IV PRN (17:35)
[2025-01-31 18:00] VITALS: BP 162/99; PULSE 105; RESP 16; TEMP 98.9; O2SAT 97
[2025-01-31] MEDS: LidoCAINE 2% Topical Jelly 11mL syringe (UROJET) TOP ONE (18:58)
--- NOTE | 2025-01-31 19:24 | PROGRESS NOTE ---
Daily Progress Note Providers to CC ~ Antibiotic Timeout Antibiotic Ordered?: No Subjective Patient was not had any returned a bowel function yet has not passed gas either remains on NG tube suctioning the patient was ambulating around the surgical unit without any difficulties. Objective Vital Signs Date Time Temp Pulse Resp B/P (MAP) Pulse Ox O2 Delivery O2 Flow Rate FiO2 01/31/25 15:00 16 01/31/25 10:00 98.1 99 153/99 (117) 94 Room Air 01/30/25 20:00 2.0 Result Diagram: 01/31/25 0526 01/31/25 05 Gen. No acute distress alert and oriented 4 Lungs clear to ascultation bilaterally, no wheezes rales or rhonchi appreciated Heart normal sinus rhythm no murmurs rubs or clicks noted Abdomen semi firm moderately distended bowel sounds are hypoactive Lower extremities no clubbing cyanosis, nor edema appreciated bilaterally Coagulation Studies Laboratory Tests Test 01/29/25 10:42 Prothrombin Time 10.9 SECONDS (9.0-12.0) INR International Normalized Ratio 1.1 INR Coagulation Comments Problem\Assessment\Plan Problems/Diagnosis: (1) SBO (small bowel obstruction) # small-bowel obstruction- NPO- NG tube to low wall intermittent suction- Dr. Sharma surgeon to be consulted -01/[address] scan of the abdomen and pelvis overnight oral contrast prep demonstrated a small-bowel obstruction patient was since went to the OR with the following procedures by Dr. Sharma: Robotic assisted, laparoscopic enterolysis Exploratory laparotomy with lysis of adhesions Small bowel diverticulectomy Bilateral transversus abdominis nerve blocks by injection using 266 mg of Exparel -01/29 NG tube remains in place and the patient was on ice chips currently -01/31 no change the patient remains on NG tube suctioning and on ice chips has not yet passed flatus # MARLENE-likely secondary to dehydration/ATN- resolved with IV fluid resuscitation # elevated bilirubin and AST- monitor daily CMP - the gallbladder and biliary tree is unremarkable on CT scan. -01/29 resolved # leukocytosis- neutrophil% is normal- afebrile likely secondary to leukemoid reaction monitor for any signs of an acute infectious process -01/29 resolved -01/30 white blood cell count is up trended likely secondary to leukemoid reaction postop we will continue to monitor -01/31 slightly downtrended today # hypokalemia- on potassium replacement protocol # DVT prophylaxis SCDs Date of Service: Jan 31, 2025 Billing Provider: GUIDO DALAL DO Common Visit Codes: [id number] INP/OBS CARE(HIGH) GUIDO DALAL DO Jan 31, 2025 19:24
[2025-01-31 20:00] VITALS: RESP 16; O2SAT 97
[2025-01-31] MEDS: potassium CL 20mEq in D5-1/2NS 1,000 ML IV SCH (21:48)
[2025-01-31 22:00] VITALS: BP 144/89; PULSE 95; RESP 16; TEMP 98.4; O2SAT 94
--- NOTE | 2025-01-31 23:17 | PROGRESS NOTE ---
Progress Note Dictate Providers to CC ~ Progress Note: Postoperative day 2. Status post lysis of adhesions for small-bowel obstruction NG tube in place Awaiting return of bowel function Nasogastric tube with persistent bilious output Abdominal pain and distention improved Continue to wait for expected prolonged postoperative ileus Antibiotic Ordered?: No Objective Vitals Vital Signs Date Time Temp Pulse Resp B/P (MAP) Pulse Ox O2 Delivery O2 Flow Rate FiO2 01/31/25 23:00 16 01/31/25 22:00 98.4 95 144/89 (107) 94 Room Air 01/30/25 20:00 2.0 Lab Results: 01/31/25 0526 01/31/252003 Coagulation Studies Laboratory Tests Test 01/29/25 10:42 Prothrombin Time 10.9 SECONDS (9.0-12.0) INR International Normalized Ratio 1.1 INR Coagulation Comments Problem\Assessment\Plan Problems/Diagnosis: (1) SBO (small bowel obstruction) BENSON ROMERO MD Jan 31, 2025 23:17
[2025-02-01 04:48] LABS: BASOPHILS % (AUTO) 0.5 % (0-1); EOSINOPHILS # (AUTO) 0.2 X10'3 (0-0.9); EOSINOPHILS % (AUTO) 3.1 % (0-6); HEMATOCRIT 34.6 % (42.0-52.0); HEMOGLOBIN 11.8 g/dl (14.0-17.9); LYMPHOCYTES # (AUTO) 0.9 X10'3 (1.1-4.8); LYMPHOCYTES % (AUTO) 13.1 % (21-51); MEAN CORPUSCULAR HEMOGLOBIN 31.8 PG (27.0-31.0); MEAN CORPUSCULAR VOLUME 93.3 FL (78-98); MEAN PLATELET VOLUME 10.2 FL (7.4-10.4); MONOCYTES # (AUTO) 0.7 X10'3 (0-0.9); MONOCYTES % (AUTO) 10.9 % (2-12); NEUTROPHILS # (AUTO) 4.8 X10'3 (1.8-7.7); NEUTROPHILS % (AUTO) 72.4 % (42-75); PLATELET COUNT 176 X10'3 (140-440); RED BLOOD COUNT 3.71 X10'6 (4.70-6.10); RED CELL DISTRIBUTION WIDTH 13.7 % (11.5-14.5); WHITE BLOOD COUNT 6.6 X10'3 (4.5-11.0)
[2025-02-01 05:10] LABS: ALANINE AMINOTRANSFERASE 27 U/L (12-78); ALBUMIN 2.3 G/DL (3.4-5.0); ALBUMIN/GLOBULIN RATIO 0.8 (1.1-1.5); ALKALINE PHOSPHATASE 76 IU/L (46-116); ANION GAP 7 (8-16); ASPARTATE AMINO TRANSFERASE 21 U/L (10-37); BILIRUBIN,TOTAL 0.6 MG/DL (0.1-1.0); BLOOD UREA NITROGEN 10 MG/DL (7-18); BUN/CREATININE RATIO 20.4 (10.0-20.0); CHLORIDE 108 MMOL/L (99-107); CREATININE 0.49 MG/DL (0.60-1.10); GLUCOSE 102 MG/DL (70-104); MAGNESIUM 1.9 MG/DL (1.5-2.4); POTASSIUM 3.4 MMOL/L (3.5-5.1); SODIUM 142 MMOL/L (135-145); TOTAL CARBON DIOXIDE 26.8 MMOL/L (24-32); TOTAL PROTEIN 5.1 G/DL (6.4-8.2); eCRCL 202 ML/MIN; eGFR > 90 ML/MIN
[2025-02-01 06:00] VITALS: BP 148/98; PULSE 88; RESP 18; TEMP 98.5; O2SAT 95
[2025-02-01] MEDS ORDERED: magnesium Cl slow-release 64mg tablet PO PRN (07:00)
[2025-02-01] MEDS ORDERED: magnesium sulf-water 4G/100mL 100 ML IV PRN (07:00)
[2025-02-01] MEDS ORDERED: magnesium sulf-water 2g/50mL 50 ML IV PRN (07:00)
[2025-02-01] MEDS ORDERED: potassium Cl 20 mEq SR tablet PO PRN ×2 (07:00)
[2025-02-01 08:00] VITALS: RESP 16; O2SAT 95
[2025-02-01] MEDS: K and/or MAG REPLACEMENT MC SCH (08:00)
[2025-02-01] MEDS: potassium Cl 40MEQ/1/2NS 520ml 520 ML IV PRN (08:23)
[2025-02-01 10:00] VITALS: BP 157/97; PULSE 94; RESP 18; TEMP 97.8; O2SAT 94
[2025-02-01] MEDS: PCA WASTE DOCUMENTATION 1 MG ML MC SCH (13:35)
--- NOTE | 2025-02-01 15:40 | PROGRESS NOTE ---
Progress Note Dictate Providers to CC ~ Progress Note: Subsequent surgical care on a 39-year-old gentleman who is postoperative day three status post robotic assisted diagnostic laparoscopy with exploratory laparotomy and lysis of adhesions Patient had a small bowel obstruction as well as a suspected small bowel diverticulum that was resected Anticipated 3-4 day postoperative ileus due to massive dilation of proximal small bowel Awaiting return of bowel function Pathology pending Incision clean, dry, and intact Continue NG tube Dextrose and electrolytes I will continue to follow Antibiotic Ordered?: No Objective Vitals Vital Signs Date Time Temp Pulse Resp B/P (MAP) Pulse Ox O2 Delivery O2 Flow Rate FiO2 02/01/25 15:00 16 02/01/25 10:00 97.8 94 157/97 (117) 94 Room Air 02/01/25 06:00 97 01/30/25 20:00 2.0 Lab Results: 02/01/25 0427 02/01/25 0427 Coagulation Studies Laboratory Tests Test 01/29/25 10:42 Prothrombin Time 10.9 SECONDS (9.0-12.0) INR International Normalized Ratio 1.1 INR Coagulation Comments Problem\Assessment\Plan Problems/Diagnosis: (1) SBO (small bowel obstruction) BENSON ROMERO MD Feb 01, 2025 15:40
[2025-02-01 18:00] VITALS: BP 145/96; PULSE 87; RESP 18; TEMP 97.6; O2SAT 94
--- NOTE | 2025-02-01 18:03 | PATHOLOGY REPORT ---
[facility] [address] [place] [address] SURGICAL PATHOLOGY REPORT CaseNumber: [id number] Surgeon:Han Sharma M.D. CLINICAL INFORMATION CLINICAL INFORMATION: Small bowel mass. DIAGNOSIS DIAGNOSIS: SMALL BOWEL; SEGMENTAL RESECTION - HETEROTOPIC GASTRIC MUCOSA FORMING A CYST. COMMENT NOTE: Dr. Jethro Cheng has reviewed this case and agrees with the interpretation. MICROSCOPIC DESCRIPTION MICROSCOPIC DESCRIPTION: Two slides are examined. Within the muscular wall, there is a unilocular kenzie ign cyst lined by gastric foveolar-type mucosa. Specialized gastric glands are not identified. Goblet cell (intestinal) cells are not identified. There is no significant atypia or invasive pattern ident ified. (st) GROSS DESCRIPTION GROSS DESCRIPTION: Received in a container of formalin labeled with the patient's name, number, and " small bowl mass" is a wedge of bowel which measures 2 x 2 x 1.7 cm. There is a row surgical dora running along one edge of the specimen 2 cm long. The staple line is removed, the margin is marked b lack, and the specimen is sectioned and inbound call center representative sections are submitted as A1-A2. The time at which the specimen was removed was 1827. The time at which the specimen was placed in [facility] was 1830. Electronically signed by: Mesfin Guillen M.D. 02/01/2025 5:21:00 PM
--- NOTE | 2025-02-01 18:40 | PROGRESS NOTE ---
Daily Progress Note Providers to CC ~ Antibiotic Timeout Antibiotic Ordered?: No Subjective The patient has yet to have return of his bowel function has not pass flatus yet and continues to have significant amount out of his NG drainage today was 350 cc. The patient has not no other complaints. Objective Vital Signs Date Time Temp Pulse Resp B/P (MAP) Pulse Ox O2 Delivery O2 Flow Rate FiO2 02/01/25 17:00 16 02/01/25 10:00 97.8 94 157/97 (117) 94 Room Air 02/01/25 06:00 97 01/30/25 20:00 2.0 Result Diagram: 02/01/2542602/01/25426 Gen. No acute distress alert and oriented 4 Lungs clear to ascultation bilaterally, no wheezes rales or rhonchi appreciated Heart normal sinus rhythm no murmurs rubs or clicks noted Abdomen soft however moderately distended bowel sounds are hypoactive Lower extremities no clubbing cyanosis, nor edema appreciated bilaterally Coagulation Studies Laboratory Tests Test 01/29/25 10:42 Prothrombin Time 10.9 SECONDS (9.0-12.0) INR International Normalized Ratio 1.1 INR Coagulation Comments Problem\Assessment\Plan Problems/Diagnosis: (1) SBO (small bowel obstruction) # small-bowel obstruction- NPO- NG tube to low wall intermittent suction- Dr. Sharma surgeon to be consulted -01/[address] scan of the abdomen and pelvis overnight oral contrast prep demonstrated a small-bowel obstruction patient was since went to the OR with the following procedures by Dr. Sharma: Robotic assisted, laparoscopic enterolysis Exploratory laparotomy with lysis of adhesions Small bowel diverticulectomy Bilateral transversus abdominis nerve blocks by injection using 266 mg of Exparel -01/29 NG tube remains in place and the patient was on ice chips currently -01/31 no change the patient remains on NG tube suctioning and on ice chips has not yet passed flatus -02/01 no change yet in bowel function remains on NG tube suctioning and ice chips and has not passed flatus- anticipated 3-4 day postop ileus per Dr. Sharma # MARLENE-likely secondary to dehydration/ATN- resolved with IV fluid resuscitation # elevated bilirubin and AST- monitor daily CMP - the gallbladder and biliary tree is unremarkable on CT scan. -01/29 resolved # leukocytosis- neutrophil% is normal- afebrile likely secondary to leukemoid reaction monitor for any signs of an acute infectious process -01/29 resolved -01/30 white blood cell count is up trended likely secondary to leukemoid reaction postop we will continue to monitor -01/31 slightly downtrended today -02/01 resolved # hypokalemia- on potassium replacement protocol # DVT prophylaxis SCDs Date of Service: Feb 01, 2025 Billing Provider: GUIDO DALAL DO Common Visit Codes: [id number] INP/OBS CARE(HIGH) GUIDO DALAL DO Feb 01, 2025 18:40
[2025-02-01 20:00] VITALS: RESP 18; O2SAT 97
[2025-02-01] MEDS ORDERED: tamsulosin 0.4mg capsule PO SCH (21:00)
[2025-02-01 22:00] VITALS: BP 157/104; PULSE 90; RESP 15; TEMP 98; O2SAT 98
[2025-02-02 04:53] LABS: BASOPHILS % (AUTO) 0.7 % (0-1); EOSINOPHILS # (AUTO) 0.3 X10'3 (0-0.9); EOSINOPHILS % (AUTO) 4.3 % (0-6); HEMATOCRIT 37.6 % (42.0-52.0); HEMOGLOBIN 12.6 g/dl (14.0-17.9); LYMPHOCYTES # (AUTO) 0.9 X10'3 (1.1-4.8); LYMPHOCYTES % (AUTO) 14.9 % (21-51); MEAN CORPUSCULAR HEMOGLOBIN 30.9 PG (27.0-31.0); MEAN CORPUSCULAR HGB CONC 33.5 g/dL (33.0-36.5); MEAN CORPUSCULAR VOLUME 92.2 FL (78-98); MEAN PLATELET VOLUME 10.2 FL (7.4-10.4); MONOCYTES # (AUTO) 0.7 X10'3 (0-0.9); MONOCYTES % (AUTO) 11.3 % (2-12); NEUTROPHILS # (AUTO) 4.1 X10'3 (1.8-7.7); NEUTROPHILS % (AUTO) 68.8 % (42-75); PLATELET COUNT 214 X10'3 (140-440); RED BLOOD COUNT 4.08 X10'6 (4.70-6.10); RED CELL DISTRIBUTION WIDTH 13.3 % (11.5-14.5); WHITE BLOOD COUNT 5.9 X10'3 (4.5-11.0)
[2025-02-02 05:16] LABS: ALANINE AMINOTRANSFERASE 49 U/L (12-78); ALBUMIN 2.3 G/DL (3.4-5.0); ALBUMIN/GLOBULIN RATIO 0.7 (1.1-1.5); ALKALINE PHOSPHATASE 92 IU/L (46-116); ANION GAP 4 (8-16); ASPARTATE AMINO TRANSFERASE 34 U/L (10-37); BILIRUBIN,TOTAL 0.8 MG/DL (0.1-1.0); BLOOD UREA NITROGEN 4 MG/DL (7-18); BUN/CREATININE RATIO 6.3 (10.0-20.0); CALCIUM 8.3 MG/DL (8.5-10.1); CHLORIDE 105 MMOL/L (99-107); CREATININE 0.64 MG/DL (0.60-1.10); GLUCOSE 103 MG/DL (70-104); MAGNESIUM 1.8 MG/DL (1.5-2.4); POTASSIUM 3.6 MMOL/L (3.5-5.1); SODIUM 139 MMOL/L (135-145); TOTAL CARBON DIOXIDE 29.9 MMOL/L (24-32); TOTAL PROTEIN 5.5 G/DL (6.4-8.2); eCRCL 155 ML/MIN; eGFR > 90 ML/MIN
[2025-02-02 10:21] VITALS: RESP 20; O2SAT 97
[2025-02-02 10:27] VITALS: RESP 20
--- NOTE | 2025-02-02 14:21 | PROGRESS NOTE ---
Daily Progress Note Providers to CC ~ Antibiotic Timeout Antibiotic Ordered?: No Subjective The patient was passed flatus yesterday and Dr. Sharma has advanced the patient to a clear liquid diet- the patient ambulates around the surgical floor several times a day. Objective Vital Signs Date Time Temp Pulse Resp B/P (MAP) Pulse Ox O2 Delivery O2 Flow Rate FiO2 02/02/25 11:00 16 02/02/25 10:27 Room Air 2.0 02/02/25 10:21 97 02/01/25 22:00 98.0 90 157/104 (121) 02/01/25 06:00 97 Result Diagram: 02/02/25 04202/02/25 042 Gen. No acute distress alert and oriented 4 Lungs clear to ascultation bilaterally, no wheezes rales or rhonchi appreciated Heart normal sinus rhythm no murmurs rubs or clicks noted Abdomen soft however moderately distended bowel sounds are hypoactive Lower extremities no clubbing cyanosis, nor edema appreciated bilaterally Coagulation Studies Laboratory Tests Test 01/29/25 10:42 Prothrombin Time 10.9 SECONDS (9.0-12.0) INR International Normalized Ratio 1.1 INR Coagulation Comments Problem\Assessment\Plan Problems/Diagnosis: (1) SBO (small bowel obstruction) # small-bowel obstruction- NPO- NG tube to low wall intermittent suction- Dr. Sharma surgeon to be consulted -01/[address] scan of the abdomen and pelvis overnight oral contrast prep demonstrated a small-bowel obstruction patient was since went to the OR with the following procedures by Dr. Sharma: Robotic assisted, laparoscopic enterolysis Exploratory laparotomy with lysis of adhesions Small bowel diverticulectomy Bilateral transversus abdominis nerve blocks by injection using 266 mg of Exparel -01/29 NG tube remains in place and the patient was on ice chips currently -01/31 no change the patient remains on NG tube suctioning and on ice chips has not yet passed flatus -02/01 no change yet in bowel function remains on NG tube suctioning and ice chips and has not passed flatus- anticipated 3-4 day postop ileus per Dr. Sharma -02/02 patient passed flatus yesterday in the late afternoon in his now on a clear liquid diet # MARLENE-likely secondary to dehydration/ATN- resolved with IV fluid resuscitation # elevated bilirubin and AST- monitor daily CMP - the gallbladder and biliary tree is unremarkable on CT scan. -01/29 resolved # leukocytosis- neutrophil% is normal- afebrile likely secondary to leukemoid reaction monitor for any signs of an acute infectious process -01/29 resolved -01/30 white blood cell count is up trended likely secondary to leukemoid reaction postop we will continue to monitor -01/31 slightly downtrended today -02/01 resolved # hypokalemia- on potassium replacement protocol # DVT prophylaxis SCDs Date of Service: Feb 02, 2025 Billing Provider: GUIDO DALAL DO Common Visit Codes: [id number] INP/OBS CARE(HIGH) GUIDO DALAL DO Feb 02, 2025 14:21
[2025-02-02] MEDS ORDERED: hydrALAZINE 20mg/ml inj. IV PRN (16:40)
[2025-02-02 18:00] VITALS: BP 163/106; PULSE 95; RESP 17; TEMP 98.7; O2SAT 97
[2025-02-02 20:00] VITALS: RESP 16
[2025-02-02] MEDS: tamsulosin 0.4mg capsule PO SCH (20:26)
--- NOTE | 2025-02-02 20:47 | PROGRESS NOTE ---
Progress Note Dictate Providers to CC ~ Progress Note: Subsequent surgical care on a 39-year-old gentleman who is postoperative day 4 status post robotic assisted diagnostic laparoscopy with exploratory laparotomy and lysis of adhesions Patient had a small bowel obstruction as well as a suspected small bowel diverticulum that was resected Pathology shows gastric mucosa in the diverticulum, however, not in the vicinity of where the Meckel's would be. Benign Patient passing flatus and had a bowel movement today Nasogastric tube discontinued Tolerating clear liquid diet Full liquid diet tomorrow APOLINAR Johnson in the morning Antibiotic Ordered?: No Objective Vitals Vital Signs Date Time Temp Pulse Resp B/P (MAP) Pulse Ox O2 Delivery O2 Flow Rate FiO2 02/02/25 18:00 98.7 95 17 163/106 (125) 97 Room Air 02/02/25 10:27 2.0 02/01/25 06:00 97 Lab Results: 02/02/25 0422 02/02/25 0422 Coagulation Studies Laboratory Tests Test 01/29/25 10:42 Prothrombin Time 10.9 SECONDS (9.0-12.0) INR International Normalized Ratio 1.1 INR Coagulation Comments Problem\Assessment\Plan Problems/Diagnosis: (1) SBO (small bowel obstruction) BENSON ROMERO MD Feb 02, 2025 20:47
[2025-02-02] MEDS ORDERED: acetaminophen 325mg tablet PO PRN ×2 (20:50)
[2025-02-02 22:00] VITALS: BP 145/103; PULSE 78; RESP 16; TEMP 97.6; O2SAT 97
[2025-02-03 06:00] VITALS: BP 137/90; RESP 17; TEMP 98.9; O2SAT 98
[2025-02-03 08:00] VITALS: RESP 18; O2SAT 98
[2025-02-03] MEDS ORDERED: tamsulosin 0.4mg capsule PO SCH (08:00)
[2025-02-03 10:29] VITALS: BP 158/112; PULSE 90; RESP 18; TEMP 98.2; O2SAT 96
[2025-02-03] MEDS ORDERED: HYDR-3965 PO (10:36)
[2025-02-03 12:06] VITALS: O2SAT 98
--- NOTE | 2025-02-03 17:01 | DISCHARGE SUMMARY ---
Discharge Summary Providers to CC ~ Discharge Summary Admission Diagnosis: Small-bowel obstruction Hospital Course DATE OF ADMISSION: 01/28/2025 DATE OF DISCHARGE: 02/03/2025 Discharge Diagnosis\\Comment: Small-bowel obstruction, MARLENE, elevated bilirubin AST, leukocytosis secondary to leukemoid reaction, hypokalemia, hypertension Operations\\Procedures: Robotic assisted, laparoscopic enterolysis Exploratory laparotomy with lysis of adhesions Small bowel diverticulectomy (CPT 89441) Bilateral transversus abdominis nerve blocks by injection using 266 mg of Exparel Consultants: Dr. Han Sharma Surgeon Complications: None Condition on DC: Stable New Medications: Hydrocodone Bit/Acetaminophen 5/325 MG (Paoli 5/325 MG) 5 Mg/325 Mg Tablet 1 TAB PO Q6H PRN for severe pain (7-10), #10 TAB Discontinued Medications: Home Med List (No Home Medications) Each Discharge Summary: I admitted the patient with the following HPI:This is a 39-year-old male who has a three day history of periumbilical abdominal pain as well as nausea and intermittent emesis last episode of vomiting was last evening. The patient had a normal bowel movement three days ago was seen in urgent [facility] and recommended a brat diet patient was symptoms have not improve. Patient denies any fever chills. The patient [place] [address] and an acute kidney injury with a estimated GFR of 52 and a creatinine 1.50. A CT scan of the abdomen and pelvis was obtained which demonstrates multiple dilated loops of small bowel consistent with a small-bowel obstruction without a definitive transition point. Dr. Rivera ED physician is going to contact on-call surgeon Dr. Sharma- NG tube to low wall intermittent suction is ordered. Dr. Sharma recommended a repeat CT scan with overnight oral contrast prep which was consistent with a small-bowel obstruction however there was no definitive transition point the patient went to the OR on the and it was discovered the the patient had the following findings: "In the mid small bowel, there was a definite transition point as the decompressed loop of small bowel dives into the mesentery and became tangled in a dense web of adhesions. About 1 hour was spent trying to complete the enterolysis and free the obvious site of obstruction (transition point). After 1 hour, no significant progress was reached and this was ultimately abandoned for an exploratory laparotomy.' The patient had a to be expected postop ileus and had NG tube to suction- the patient finally passed flatus and was started on a clear liquid diet on the morning of the and this was advanced by Dr. Sharma to a full liquid diet the patient tolerated a full liquid diet without any significant abdominal pain and in the meantime he had a couple of bowel movements and was cleared by Dr. Sharma for discharge. The patient was to follow up with Dr. Sharma in the outpatient setting in eight days Patient had a transient leukocytosis with a white blood cell count 16936 on the and this normalized by the of 6600 this this was secondary to leukemoid reaction. Intermittently the patient had elevated blood pressure and appears that he does have hypertension however sometimes the patient was blood pressure was low end of normal and the morning of the his blood pressure was 137/90 this did creep up midmorning to 158/112 I did inform the patient in his mother that he needs to keep a close eye on his blood pressure and that he may need to start antihypertensive medications. I did prescribe a short script for Paoli 02/3251 tablet every 6 hours for severe pain a total of 10 tablets were prescribed. The patient was mother asked me on a couple occasions if the patient needs to see laboratory equipment installer I informed her that this is not indicated however discuss this with Dr. Sharma of the follow up appointment next week. Gen. No acute distress alert and oriented 4 Lungs clear to ascultation bilaterally, no wheezes rales or rhonchi appreciated Heart normal sinus rhythm no murmurs rubs or clicks noted Abdomen soft minimal tenderness bowel sounds are normoactive Lower extremities no clubbing cyanosis, nor edema appreciated bilaterally The patient felt ready to be discharged and was medically cleared to be discharged on 02/03/2025 The patient was seen and evaluated on day of discharge. Time spent on discharge 35 minutes *Problems/Diagnosis: (1) SBO (small bowel obstruction) Status: Acute Total Time Spent on D/C: > 30 Minutes Date of Service: Feb 03, 2025 Billing Provider: GUIDO DALAL DO Common Visit Codes: 80365-RUA/OBS DISCH DAY >30min GUIDO DALAL DO Feb 03, 2025 17:01
== END 2025-02-03 16:18 | disposition home or self-care (01) | DRG 329 ==
LOC: ER 08:06 → ED HOLD 10:09 → SUR 3N 11:48
PROVIDERS: ADMIT Family Medicine; ATTEND Family Medicine
PROC: 0D9670Z Drainage of Stomach with Drainage Device, Via Natural or Artificial Opening (ICD-10-PCS; 2025-01-28)
PROC: BW211ZZ Computerized Tomography (CT Scan) of Abdomen and Pelvis using Low Osmolar Contrast (ICD-10-PCS; 2025-01-28)
PROC: 8E0W4CZ Robotic Assisted Procedure of Trunk Region, Percutaneous Endoscopic Approach (ICD-10-PCS; 2025-01-29)
PROC: 0DJD0ZZ Inspection of Lower Intestinal Tract, Open Approach (ICD-10-PCS; 2025-01-29)
PROC: 0DN80ZZ Release Small Intestine, Open Approach (ICD-10-PCS; 2025-01-29)
PROC: 0DNV0ZZ Release Mesentery, Open Approach (ICD-10-PCS; 2025-01-29)
PROC: 3E0T3BZ Introduction of Anesthetic Agent into Peripheral Nerves and Plexi, Percutaneous Approach (ICD-10-PCS; 2025-01-29)
PROC: 0DB80ZZ Excision of Small Intestine, Open Approach (ICD-10-PCS; principal; 2025-01-29 16:18)
DX: K56.50 Intestinal adhesions [bands], unspecified as to partial versus complete obstruction (principal); N17.0 Acute kidney failure with tubular necrosis; K91.89 Other postprocedural complications and disorders of digestive system; R65.10 Systemic inflammatory response syndrome (SIRS) of non-infectious origin without acute organ dysfunction; K56.7 Ileus, unspecified; Y83.8 Other surgical procedures as the cause of abnormal reaction of the patient, or of later complication, without mention of misadventure at the time of the procedure; E87.6 Hypokalemia; I10 Essential (primary) hypertension; K57.10 Diverticulosis of small intestine without perforation or abscess without bleeding; Y92.89 Other specified places as the place of occurrence of the external cause; Z80.0 Family history of malignant neoplasm of digestive organs; Z87.891 Personal history of nicotine dependence; Z53.31 Laparoscopic surgical procedure converted to open procedure; E86.0 Dehydration
CPT/HCPCS: 36415; 43762; 71045; 74176; 80053; 81001; 82948; 83690; 83735; 84132; 85025; 85610; 87081; 88307; 96361; 96374; 99285; A4215; A4314; A4615; A4618; A6253; A6258; A6449; A7000; G0378; J0131; J0690; J1171; J2003; J2250; J2274; J2704; J2710; J3010; J3480; J3490; J7030; J7120; Q9963